=== PATIENT | female | born 1950 | race Caucasian/White ===

== ENCOUNTER 2020-02-21 15:33 | Emergency (ER) | payer OTHER ==
[~2020-02-21 15:33] MED LIST: ADULT LOW DOSE81 MG PO; ASPIRIN325; CAL-MAG-ZINC T1 EACH PO; LANSOPRAZOLE30 MG PO; PERCOCET 5-3251 EACH PO; PLAVIX 75 MG TA75 M1 PO; PREVACID; PREVACID 30MG C30 M1 PO; SIMVASTATIN40 MG PO; TOPROL XL25 MG PO; VITAMIN D-3 PO; ZANTAC 150MG T150 M1 PO; ZPAK PO
[2020-02-21 15:37] VITALS: BP 133/85
== END 2020-02-21 16:40 ==
LOC: ER 15:33
DX: F98.8 Other specified behavioral and emotional disorders with onset usually occurring in childhood and adolescence (principal); Z20.828 Contact with and (suspected) exposure to other viral communicable diseases; K21.9 Gastro-esophageal reflux disease without esophagitis; I25.2 Old myocardial infarction; Z88.5 Allergy status to narcotic agent; Z88.0 Allergy status to penicillin; Z79.82 Long term (current) use of aspirin; Z79.899 Other long term (current) drug therapy; Z90.710 Acquired absence of both cervix and uterus